=== PATIENT | female | born 1990 | race Caucasian/White ===

== ENCOUNTER 2022-07-17 13:35 | Emergency (ER) | payer SELFPAY | END 2022-07-17 16:20 | disposition home or self-care (01) | LOC: ERS 13:35 | DX: S92.402A Displaced unspecified fracture of left great toe, initial encounter for closed fracture (principal); M25.562 Pain in left knee; F17.290 Nicotine dependence, other tobacco product, uncomplicated; W18.42XA Slipping, tripping and stumbling without falling due to stepping into hole or opening, initial encounter ==